=== PATIENT | male | born 1970 | race Caucasian/White ===

== ENCOUNTER 2016-10-03 18:54 | Emergency (ER) | payer OTHER ==
[2016-10-03 19:16] VITALS: BP 150/91; PULSE 74; RESP 20; TEMP 98.7
[2016-10-03] MEDS ORDERED: CLINDAMYCIN 150 MG CAP PO STA (19:39)
--- NOTE | 2016-10-03 19:42 | ED ---
ENT HPI - General Chief complaint: Dental/Oral Stated complaint: MOUTH/DENTAL PAIN, POSS FEVER Time Seen by Provider: 10/03/16 19:17 Source: patient, RN notes reviewed, old records reviewed Mode of arrival: ambulatory Limitations: no limitations - History of Present Illness Initial comments: This is a 46 year old male with pain over upper front teeth and between the nose for the last 3 days. Patient states he feels like there is a large pimple between his nose and upper lip causing pain and swelling. Patient denies any redness over the area. Denies any trauma to his teeth causing irriation. Patient denies any difficulty breathing. Patient reports he feels chilled, but no recorded fever. - Related Data Previous Rx's Medication Instructions Recorded Acetaminophen Tab [Tylenol Tab] 650 mg PO Q6H #20 tablet 10/03/16 Clindamycin [Cleocin] 450 mg PO TID 7 Days 10/03/16 Ibuprofen [Motrin] 800 mg PO Q6HR PRN #20 tab 10/03/16 Allergies Allergy/AdvReac Type Severity Reaction Status Date / Time No Known Allergies Allergy Verified 10/03/16 19:24 Review of Systems ROS Statement: Those systems with pertinent positive or pertinent negative responses have been documented in the HPI. ROS Other: All systems not noted in ROS Statement are negative. Constitutional: Reports: chills. Denies: fever Eyes: Denies: eye pain ENT: Reports: dental pain. Denies: ear pain, throat pain, hearing loss, epistaxis Respiratory: Denies: cough, dyspnea Cardiovascular: Denies: chest pain Endocrine: Reports: heat or cold intolerance Gastrointestinal: Denies: abdominal pain, nausea, vomiting Genitourinary: Denies: urgency Musculoskeletal: Denies: back pain Skin: Denies: rash Neurological: Denies: headache Psychiatric: Denies: anxiety Hematological/Lymphatic: Denies: easy bleeding Past Medical History Past Medical History: No Reported History History of Any Multi-Drug Resistant Organisms: MRSA Date of last positivie culture/infection: 2010 MDRO Source:: face Past Surgical History: No Surgical Hx Reported Past Psychological History: No Psychological Hx Reported Smoking Status: Former smoker Past Drug Use History: None Reported General Exam - General Exam Comments Initial Comments: Pleasant 46 year old male, no distress. Limitations: no limitations General appearance: alert, in no apparent distress Head exam: Present: atraumatic, normocephalic, normal inspection Eye exam: Present: normal appearance, PERRL, EOMI. Absent: scleral icterus, conjunctival injection, periorbital swelling ENT exam: Present: normal exam, mucous membranes moist, other (area of swelling and firm between nose and upper lip. No significant drainage from upper two front teeth. No septal hematoma or abscess. ) Neck exam: Present: normal inspection. Absent: tenderness, meningismus, lymphadenopathy Respiratory exam: Present: normal lung sounds bilaterally. Absent: respiratory distress, wheezes, rales, rhonchi, stridor Cardiovascular Exam: Present: regular rate, normal rhythm, normal heart sounds. Absent: systolic murmur, diastolic murmur, rubs, gallop, clicks GI/Abdominal exam: Present: soft, normal bowel sounds. Absent: distended, tenderness, guarding, rebound, rigid Extremities exam: Present: normal inspection, full ROM, normal capillary refill. Absent: tenderness, pedal edema, joint swelling, calf tenderness Back exam: Present: normal inspection Neurological exam: Present: alert, oriented X3, CN II-XII intact Psychiatric exam: Present: normal affect, normal mood Skin exam: Present: warm, dry, intact, normal color. Absent: rash Course Vital Signs 10/03/16 19:15 Temperature 98.7 F Pulse Rate 74 Respiratory 20 Rate Blood Pressure 150/91 O2 Sat by Pulse 96 Oximetry Medical Decision Making - Medical Decision Making 46 year old male with upper dental pain and abscess between philtrum and upper lip. No evidence of erythema, septal abscess, or drainage from teeth. Patient will be started on clindamycin. Advised to follow up with ENT specialist and PCP. Patient agrees to treatment plan, and return paramteres discussed. Disposition Clinical Impression: Dental abscess Disposition: HOME SELF-CARE Condition: Good Instructions: Dental Abscess (ED) Additional Instructions: Patient advised to apply cool compresses over the area. Completely entire antibiotic prescription. Follow-up with her primary care provider or return to the emergency department if any alarming signs or symptoms occur. Patient advised to also follow-up with dentist. [facility] [place] [id number] [place] [address] [phone] (existing clients only) For new clients: [phone] 1st consult: $50 (includes Xrays) Usually 30% less then private dentist for visits after. [employer] [facility] [employer] Have to pay $50 for Xrays anmd rest is covered. [phone] Prescriptions: Acetaminophen Tab [Tylenol Tab] 650 mg PO Q6H #20 tablet Clindamycin [Cleocin] 450 mg PO TID 7 Days Ibuprofen [Motrin] 800 mg PO Q6HR PRN #20 tab PRN Reason: Pain Referrals: Cheyanne Sales MD [STAFF PHYSICIAN] - 1-2 days Eddy Gore MD [STAFF PHYSICIAN] - 1-2 days Time of Disposition: 19:34
== END 2016-10-03 19:50 | disposition home or self-care (01) ==
LOC: EC 18:54
DX: K04.7 Periapical abscess without sinus (principal); Z87.891 Personal history of nicotine dependence
CPT/HCPCS: 99282